=== PATIENT | female | born 1965 | race Hispanic/Latino ===

== ENCOUNTER 2018-06-07 10:00 | Emergency (ER) | payer OTHER ==
[2018-06-07] MEDS ORDERED: Acetaminophen 500 MG TAB ONE (10:42)
[2018-06-07] MEDS ORDERED: Ketorolac Tromethamine 60 MG/2 ML VIAL ONE (10:42)
--- NOTE | 2018-06-07 11:48 | RAD ---
RIGHT SHOULDER THREE VIEWS: HISTORY: Right shoulder pain. FINDINGS: There are mild degenerative changes in the acromioclavicular joint. No fracture, dislocation, or bon y destruction is identified. POS: [facility]
== END 2018-06-07 11:37 | disposition home or self-care (01) ==
LOC: ERS 10:00
DX: M75.51 Bursitis of right shoulder (principal); I10 Essential (primary) hypertension; Z79.899 Other long term (current) drug therapy
CPT/HCPCS: 96372; J1885

== ENCOUNTER 2022-02-06 13:42 | Outpatient (CLI) | payer OTHER | END 2022-02-06 13:43 | disposition home or self-care (01) | LOC: SCSMRI 13:42 | PROVIDERS: ATTEND Family Medicine | DX: S50.01XD Contusion of right elbow, subsequent encounter (principal); S46.012A Strain of muscle(s) and tendon(s) of the rotator cuff of left shoulder, initial encounter; S43.432A Superior glenoid labrum lesion of left shoulder, initial encounter; S46.091D Other injury of muscle(s) and tendon(s) of the rotator cuff of right shoulder, subsequent encounter ==

== ENCOUNTER 2022-08-18 14:46 | Outpatient (CLI) | payer OTHER | END 2022-08-18 14:47 | disposition home or self-care (01) | LOC: ULT 14:46 | PROVIDERS: ATTEND Nurse Practitioner Family | DX: R22.1 Localized swelling, mass and lump, neck (principal) | CPT/HCPCS: 76536 ==